=== PATIENT | female | born 1990 | race Caucasian/White ===

== ENCOUNTER 2018-05-10 09:24 | Emergency (ER) | payer BC, OTHER ==
[~2018-05-10] VITALS: Ht 162.6 cm; Wt 81.6 kg
[~2018-05-10 09:24] MED LIST: PROM6.2575 PO; [UNRECOGNIZED DRUG - OTHER]
[2018-05-10] MEDS ORDERED: NACL 0.9% 1,000 ML IV ONE (09:30)
[2018-05-10 09:32] VITALS: BP 137/69
--- NOTE | 2018-05-10 09:34 | NUR ---
URINE CUP HANDED TO PT FOR SAMPLE
--- NOTE | 2018-05-10 09:35 | NUR ---
PT AMBULATES TO BED 7
--- NOTE | 2018-05-10 09:45 | NUR ---
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
[2018-05-10 09:56] LABS: BASOPHILS # (AUTO) 0.1 K/uL (0.00-0.22); BASOPHILS % (AUTO) 1.1 % (0.0-2.0); EOSINOPHILS % (AUTO) 0.2 % (0.0-4.0); HEMOGLOBIN 12.8 g/dL (12.0-16.0); LYMPHOCYTES # (AUTO) 1.7 K/uL (2.5-16.5); LYMPHOCYTES % (AUTO) 24.5 % (20.5-51.1); MEAN CORPUSCULAR HEMOGLOBIN 30 pg (27-31); MEAN CORPUSCULAR HGB CONC 34 g/dL (33-37); MEAN CORPUSCULAR VOLUME 88.1 fL (80-94); MONOCYTES # (AUTO) 0.4 K/uL (0.8-1.0); MONOCYTES % (AUTO) 5.7 % (1.7-9.3); NEUTROPHILS # (AUTO) 4.8 K/uL (1.8-7.7); NEUTROPHILS % (AUTO) 68.5 % (42.2-75.2); PLATELET COUNT (AUTO) 205 K/uL (140-450); RED BLOOD CELL COUNT(AUTO) 4.31 MIL/uL (4.20-5.40); RED CELL DISTRIBUTION WIDTH 13.2 % (11.6-13.7); WHITE BLOOD COUNT (AUTO) 6.9 K/uL (4.8-10.8)
[2018-05-10 10:05] LABS: ANION GAP 16.6 (8-16); CARBON DIOXIDE 22.9 mmol/L (21-32); CREATININE 0.4 mg/dL (0.6-1.3); POTASSIUM 3.5 mmol/L (3.5-5.1)
--- NOTE | 2018-05-10 10:17 | NUR ---
Patient being evaluated by physician at bedside.
[2018-05-10 10:27] LABS: APPEARANCE,URINE SLIGHTLY HAZY (CLEAR); COLOR,URINE YELLOW (YELLOW)
[2018-05-10 10:28] LABS: BILIRUBIN,URINE NEGATIVE (NEGATIVE); BLOOD, URINE NEGATIVE (NEGATIVE); UGLUCOSE NEGATIVE (NEGATIVE)
[2018-05-10 10:29] LABS: LEUKOCYTE ESTERASE ,URINE NEGATIVE (NEGATIVE); NITRITE, URINE NEGATIVE (NEGATIVE)
[2018-05-10 10:32] LABS: RBC,URINE NONE SEEN /HPF (0-5); WBC,URINE 0-5 (RARE) /HPF (0-5)
[2018-05-10] MEDS ORDERED: METOCLOPRAMIDE 10 MG/2 ML INJ VIAL IVP ONE (10:35)
[2018-05-10] MEDS ORDERED: ACETAMINOPHEN EXTRA STRENGTH 500 MG TAB PO ONE (11:05)
--- NOTE | 2018-05-10 11:31 | NUR ---
Patient discharged with v/s stable. Written and verbal after care instructions given and explained. Patient alert, oriented and verbalized understanding of instructions. Ambulatory with steady gait. All questions addressed prior to discharge. ID band removed. Patient advised to follow up with PMD. Rx of reglan and tylenol given. Patient educated on indication of medication including possible reaction and side effects. Opportunity to ask questions provided and answered.
[2018-05-10 11:35] VITALS: BP 137/69
== END 2018-05-10 11:31 | disposition home or self-care (01) ==
LOC: MED 09:24
DX: O21.0 Mild hyperemesis gravidarum (principal); Z3A.16 16 weeks gestation of pregnancy; Z79.899 Other long term (current) drug therapy
CPT/HCPCS: 36415; 76805; 80048; 81001; 81025; 84702; 85025; 86900; 86901; 87804; 96361; 96374; 99284; J2765; Q0092

== ENCOUNTER 2023-11-27 09:55 | Emergency (ER) | payer MEDICAID, OTHER ==
[~2023-11-27] VITALS: Ht 160 cm; Wt 108.6 kg
[~2023-11-27 09:55] MED LIST changes: -PROM6.2575 PO; +[UNRECOGNIZED DRUG - CODE] PO
[2023-11-27 10:09] VITALS: BP 126/83; PULSE 62; RESP 18; TEMP 97.8; O2SAT 99
[2023-11-27] MEDS ORDERED: MIRABULK PO (11:37)
[2023-11-27] MEDS ORDERED: HYDR25SU91 RC (11:37)
== END 2023-11-27 12:05 | disposition home or self-care (01) ==
LOC: MED 09:55
DX: K64.4 Residual hemorrhoidal skin tags (principal); Z79.899 Other long term (current) drug therapy
CPT/HCPCS: 99283